=== PATIENT | female | born 1970 | race Caucasian/White ===

== ENCOUNTER 2017-05-26 22:06 | Observation (INO) | payer BC ==
[2017-05-26] MEDS ORDERED: Phenergan 25 MG INJ IV ONE (23:43)
[2017-05-26] MEDS ORDERED: Sodium Chloride 0.9% 1000 ML 1,000 ML IV STA (23:43)
[2017-05-26] MEDS ORDERED: Hydromorphone 1 mg/ml Ampule IV ONE (23:43)
--- NOTE | 2017-05-26 23:45 | ERPHSYRPT ---
- History of Present Illness Time Seen by Provider: 05/26/17 23:34 Historian: patient Exam Limitations: no limitations Patient Subjective Stated Complaint: pt has been being treated for diverticulosis and just finished a round of steroids -she was a little better then tonight she felt the pain coming back -she has had 4 diarrhea stools and vomited blue which she had eaten last night -no fever no urianary sx Triage Nursing Assessment: pt is awake and alert and able to answer questions - holding her sides at times Physician History: FOR THE PAST 3 WEEKS PT HAS HAD CONSTANT SHARP RLQ ABDOMINAL PAIN WITH INTERMITTENT NAUSEA AND VOMITING. PT WAS TREATED FOR DIVERTICULITIS AND JUST FINISHED STEROIDS YESTERDAY. TONIGHT PT VOMITED X4 WITHOUT BLOOD. PT DENIES CHEST PAIN, SHORTNESS OF AIR, FEVER; ADMITS TO ONGOING DIAPHORESIS. Allergies/Adverse Reactions: cyclobenzaprine HCl [From Flexeril] Allergy (Verified 05/26/17 23:20) tramadol Allergy (Verified 05/26/17 23:20) Hx Tetanus, Diphtheria Vaccination/Date Given: Yes Hx Influenza Vaccination/Date Given: No Hx Pneumococcal Vaccination/Date Given: No - Review of Systems Constitutional: No Fever Respiratory: No Dyspnea Cardiac: No Chest Pain Abdominal/Gastrointestinal: Abdominal Pain, Nausea, Vomiting Endocrine: Excessive Sweating All Other Systems: Reviewed and Negative - Past Medical History Pertinent Past Medical History: Yes Neurological History: No Pertinent History ENT History: No Pertinent History Cardiac History: No Pertinent History Respiratory History: No Pertinent History Endocrine Medical History: No Pertinent History Musculoskeletal History: Degenerative Disk Disease, Osteoarthritis GI Medical History: Irritable Bowel, Other History: Other Psycho-Social History: No Pertinent History Female Reproductive Disorders: Fibroids Other Medical History: kidney stones, right rotator injury - Past Surgical History Past Surgical History: Yes Neuro Surgical History: No Pertinent History Cardiac: No Pertinent History Respiratory: No Pertinent History Gastrointestinal: Cholecystectomy Genitourinary: No Pertinent History Musculoskeletal: No Pertinent History Female Surgical History: Hysterectomy Other Surgical History: gallbladder. Dx lap., childbirth x three natural, spinal fusion - Social History Smoking Status: Former smoker How long have you smoked: 10 Exposure to second hand smoke: No Drug Use: none Patient Lives Alone: No - Female History Hx Last Menstrual Period: hyst - Nursing Vital Signs Nursing Vital Signs: Initial Vital Signs Temperature 98.1 F 05/26/17 23:17 Pulse Rate 66 05/26/17 23:17 Respiratory Rate 16 05/26/17 23:17 Blood Pressure 145/88 05/26/17 23:17 O2 Sat by Pulse Oximetry 98 05/26/17 23:17 Pain Scale Pain Intensity 6 - Physical Exam General Appearance: alert Eye Exam: PERRL/EOMI Ears, Nose, Throat Exam: TMs normal, pharynx normal, moist mucous membranes Neck Exam: normal inspection Respiratory Exam: lungs clear Cardiovascular Exam: normal heart sounds Gastrointestinal/Abdomen Exam: soft, tenderness (MILD RLQ ABDOMINAL TENDERNESS) , other (B.S. MODERATELY HYPERACTIVE AND NORMOTONIC) Back Exam: normal range of motion Extremity Exam: normal inspection, No pedal edema Neurologic Exam: alert, cooperative Skin Exam: warm, dry SpO2 Interpretation: normal SpO2: 98 Oxygen Delivery: Room Air - Course Nursing assessment & vital signs reviewed: Yes - CT Exams Abdomen/Pelvis CT Interpretation: Tele-radiologist Report (THERE IS MILD WALL THICKENING OF THE RECTOSIGMOID COLON. COLON IS DECOMPRESSED IN THIS REGION BUT CLINICAL CORRELATION FOR COLITIS IS RECOMMENDED. NO OBSTRUCTION, PERFORATION OR ABSCESS. COLONIC DIVERTICULOSIS WITHOUT EVIDENCE OF DIVERTICULITIS. FAT CONTAINING UMBILICAL HERNIA.) Ordered Tests: Active Orders 24 hr Category Date Time Status Clean Catch Urine Specimen STAT Care 05/26/17 23:06 Active IV Insertion STAT Care 05/26/17 23:06 Active ABDOMEN AND PELVIS W/0 CONTRAS [CT] Stat Exams 05/26/17 23:43 Taken AMYLASE Stat Lab 05/26/17 23:40 Completed BLOOD CULTURE Stat Lab 05/27/17 01:15 Received CBC W DIFF Stat Lab 05/26/17 23:40 Completed CMP Stat Lab 05/26/17 23:40 Completed LIPASE Stat Lab 05/26/17 23:40 Completed MAG [MAGNESIUM] Stat Lab 05/26/17 23:40 Completed UA W/RFX UR CULTURE Stat Lab 05/26/17 23:40 Completed Medication Summary Generic Name Dose Route Start Last Admin Trade Name Freq PRN Reason Stop Dose Admin Metronidazole 500 mg in 100 mls @ 200 mls/hr 05/27/17 00:56 05/27/17 01:12 Flagyl 500 Mg Ivpb IV 05/27/17 01:25 200 mls/hr STAT STA Administration Levofloxacin/Dextrose 500 mg in 100 mls @ 100 mls/hr 05/27/17 00:56 Levofloxacin 500mg/100ml D5w IV 05/27/17 01:55 STAT STA Discontinued Medications Generic Name Dose Route Start Last Admin Trade Name Erika PROdilon Reason Stop Dose Admin Hydromorphone HCl 1 mg 05/26/17 23:43 05/26/17 23:49 Hydromorphone 1 Mg/Ml Ampule IV 05/26/17 23:44 1 mg STAT ONE Administration Hydromorphone HCl Confirm 05/26/17 23:46 Hydromorphone 1 Mg/Ml Ampule Administered 05/26/17 23:47 Dose 1 mg .ROUTE .STK-MED ONE Hydromorphone HCl 1 mg 05/27/17 00:56 05/27/17 01:11 Hydromorphone 1 Mg/Ml Ampule IV 05/27/17 00:57 1 mg STAT ONE Administration Hydromorphone HCl Confirm 05/27/17 01:10 Hydromorphone 1 Mg/Ml Ampule Administered 05/27/17 01:11 Dose 1 mg .ROUTE .STK-MED ONE Sodium Chloride 1,000 mls @ 999 mls/hr 05/26/17 23:43 05/26/17 23:50 Sodium Chloride 0.9% 1000 Ml IV 05/27/17 00:43 999 mls/hr .Q1H1M STA Administration Sodium Chloride Confirm 05/26/17 23:46 Sodium Chloride 0.9% 1000 Ml Administered 05/26/17 23:47 Dose 1,000 mls @ ud .ROUTE .STK-MED ONE Metronidazole Confirm 05/27/17 01:10 Flagyl 500 Mg Ivpb Administered 05/27/17 01:11 Dose 500 mg in 100 mls @ ud IV .STK-MED ONE Promethazine HCl 12.5 mg 05/26/17 23:43 05/26/17 23:50 Phenergan 25 Mg Inj IV 05/26/17 23:44 12.5 mg STAT ONE Administration Promethazine HCl Confirm 05/26/17 23:46 Phenergan 25 Mg Inj Administered 05/26/17 23:47 Dose 25 mg .ROUTE .STK-MED ONE Lab/Rad Data: Laboratory Result Diagrams 05/26/17 23:40 05/26/17 23:40 Laboratory Results 05/26/17 05/26/17 05/26/17 Range/Units 23:40 23:40 23:40 WBC (4.0-10.5) K/mm3 RBC (4.1-5.4) M/mm3 Hgb (12.0-16.0) gm/dl Hct (35-47) % MCV (78-100) fl MCH (26-32) pg MCHC (32-36) g/dl RDW (11.5-14.0) % Plt Count (150-450) K/mm3 MPV (6-9.5) fl Gran % (36.0-66.0) % Lymphocytes % (24.0-44.0) % Monocytes % (0.0-12.0) % Eosinophils % (0.00-5.0) % Basophils % (0.0-0.4) % Basophils # (0-0.4) Sodium 144 (136-145) mEq/L Potassium 3.6 (3.5-5.1) mEq/L Chloride 109 H (98-107) mEq/L Carbon Dioxide 23.8 (21-32) mEq/L Anion Gap 15.0 (5-15) MEQ/L BUN 16 (9-20) mg/dL Creatinine 0.98 (0.55-1.30) mg/dl Estimated GFR > 60 ML/MIN Glucose 96 (70-110) MG/DL Calcium 8.9 (8.5-10.1) mg/dL Magnesium 2.1 (1.8-2.4) mg/dL Total Bilirubin 0.20 (0.2-1.0) mg/dL AST 13 L (15-37) U/L ALT 19 (12-78) U/L Alkaline Phosphatase 123 H (46-116) U/L Serum Total Protein 7.0 (6.4-8.2) gm/dL Albumin 4.1 (3.4-5.0) g/dL Amylase 63 (25-115) U/L Lipase 121 (73-393) U/L Ur Collection Type CLEAN CATCH Urine Color YELLOW (YELLOW) Urine Appearance CLEAR (CLEAR) Urine pH 5.0 (5-6) Ur Specific Viola 1.025 (1.005-1.025) Urine Protein NEGATIVE (Negative) Urine Ketones NEGATIVE (NEGATIVE) Urine Blood NEGATIVE (0-5) Amarjit/ul Urine Nitrite NEGATIVE (NEGATIVE) Urine Bilirubin NEGATIVE (NEGATIVE) Urine Urobilinogen NORMAL (0-1) mg/dL Ur Leukocyte Esterase NEGATIVE (NEGATIVE) Urine Glucose NEGATIVE (NEGATIVE) mg/dL Specimen Received 05/26/17 2340 05/26/17 Range/Units 23:40 WBC 10.5 (4.0-10.5) K/mm3 RBC 4.50 (4.1-5.4) M/mm3 Hgb 13.7 (12.0-16.0) gm/dl Hct 41.5 (35-47) % MCV 92.2 (78-100) fl MCH 30.4 (26-32) pg MCHC 33.0 (32-36) g/dl RDW 12.9 (11.5-14.0) % Plt Count 217 (150-450) K/mm3 MPV 10.6 H (6-9.5) fl Gran % 57.6 (36.0-66.0) % Lymphocytes % 34.2 (24.0-44.0) % Monocytes % 6.5 (0.0-12.0) % Eosinophils % 1.2 (0.00-5.0) % Basophils % 0.5 (0.0-0.4) % Basophils # 0.05 (0-0.4) Sodium (136-145) mEq/L Potassium (3.5-5.1) mEq/L Chloride (98-107) mEq/L Carbon Dioxide (21-32) mEq/L Anion Gap (5-15) MEQ/L BUN (9-20) mg/dL Creatinine (0.55-1.30) mg/dl Estimated GFR ML/MIN Glucose (70-110) MG/DL Calcium (8.5-10.1) mg/dL Magnesium (1.8-2.4) mg/dL Total Bilirubin (0.2-1.0) mg/dL AST (15-37) U/L ALT (12-78) U/L Alkaline Phosphatase (46-116) U/L Serum Total Protein (6.4-8.2) gm/dL Albumin (3.4-5.0) g/dL Amylase (25-115) U/L Lipase (73-393) U/L Ur Collection Type Urine Color (YELLOW) Urine Appearance (CLEAR) Urine pH (5-6) Ur Specific Viola (1.005-1.025) Urine Protein (Negative) Urine Ketones (NEGATIVE) Urine Blood (0-5) Amarjit/ul Urine Nitrite (NEGATIVE) Urine Bilirubin (NEGATIVE) Urine Urobilinogen (0-1) mg/dL Ur Leukocyte Esterase (NEGATIVE) Urine Glucose (NEGATIVE) mg/dL Specimen Received - Progress Discussed with : Tomas (OBS - 0120) - Departure Time of Disposition: 01:25 Departure Disposition: Observation Clinical Impression: COLITIS, ARTHRITIS, IBS Condition: Stable Critical Care Time: No Referrals: LESVIA ROSADO MD [Primary Care Provider] -
[2017-05-26] MEDS ORDERED: Sodium Chloride 0.9% 1000 ML 1,000 ML ONE (23:46)
[2017-05-26] MEDS ORDERED: Phenergan 25 MG INJ ONE (23:46)
[2017-05-26] MEDS ORDERED: Hydromorphone 1 mg/ml Ampule ONE (23:46)
[2017-05-26 23:48] LABS: BASOPHIL % 0.5 % (0.0-0.4); Eosinophil % 1.2 % (0.00-5.0); Granulocytes % 57.6 % (36.0-66.0); Lymphocytes % 34.2 % (24.0-44.0); Mean Cell Volume 92.2 fl (78-100); Mean Corpuscular Hemoglobin 30.4 pg (26-32); Mean Platelet Volume 10.6 fl (6-9.5); Monocytes % 6.5 % (0.0-12.0); Platelet Count 217 K/mm3 (150-450); Red Cell Distribution Width 12.9 % (11.5-14.0); White Blood Count 10.5 K/mm3 (4.0-10.5)
[2017-05-26 23:54] LABS: ADD URINE CULTURE? NO (NO); Bilirubin NEGATIVE (NEGATIVE); Blood NEGATIVE Ery/ul (0-5); COMPLETE URINE MICROSCOPIC? NO; Collection Type CLEAN CATCH; Glucose NEGATIVE (NEGATIVE); Leukocyte Esterase NEGATIVE (NEGATIVE)
[2017-05-26 23:58] LABS: ALBUMIN 4.1 g/dL (3.4-5.0); ALKALINE PHOSPHATASE 123 U/L (46-116); BLOOD UREA NITROGEN 16 mg/dL (9-20); CHLORIDE 109 mEq/L (98-107); Carbon Dioxide 23.8 mEq/L (21-32); Glucose 96 MG/DL (70-110); LIPASE 121 U/L (73-393); Potassium 3.6 mEq/L (3.5-5.1); SGOT/AST 13 U/L (15-37); SGPT/ALT 19 U/L (12-78); SODIUM 144 mEq/L (136-145)
[2017-05-27] MEDS ORDERED: Levofloxacin 500MG/100ML D5W 500 MG/100 ML BAG IV STA (00:56)
[2017-05-27] MEDS ORDERED: Hydromorphone 1 mg/ml Ampule IV ONE ×2 (00:56→02:20)
[2017-05-27] MEDS ORDERED: FLAGYL 500 MG IVPB 500 MG/100 ML BAG IV STA (00:56)
[2017-05-27] MEDS ORDERED: Hydromorphone 1 mg/ml Ampule ONE ×2 (01:10→02:35)
[2017-05-27] MEDS ORDERED: FLAGYL 500 MG IVPB 500 MG/100 ML BAG IV ONE (01:10)
[2017-05-27] MEDS ORDERED: Zofran 4 MG/2 ML VIAL IV ONE (01:31)
[2017-05-27] MEDS ORDERED: Zofran 4 MG/2 ML VIAL ONE (01:33)
[2017-05-27] MEDS ORDERED: Levofloxacin 500MG/100ML D5W 500 MG/100 ML BAG IV ONE (01:56)
[2017-05-27] MEDS: Sodium Chloride 0.9% 1000 ML 1,000 ML IV SCH ×2 (03:53→14:13)
[2017-05-27] MEDS: DILAUDID 2 MG INJECTION IV PRN ×3 (05:29→21:07)
[2017-05-27 06:21] LABS: ALBUMIN 3.2 g/dL (3.4-5.0); ALKALINE PHOSPHATASE 95 U/L (46-116); ANION GAP 12.5 MEQ/L (5-15); BLOOD UREA NITROGEN 13 mg/dL (9-20); CHLORIDE 112 mEq/L (98-107); Carbon Dioxide 24.3 mEq/L (21-32); Glucose 94 MG/DL (70-110); Potassium 3.5 mEq/L (3.5-5.1); SGOT/AST 15 U/L (15-37); SGPT/ALT 14 U/L (12-78); SODIUM 145 mEq/L (136-145); Total Protein 5.7 gm/dL (6.4-8.2)
[2017-05-27] MEDS: FLAGYL 500 MG IVPB 500 MG/100 ML BAG IV SCH ×3 (06:36→21:12)
--- NOTE | 2017-05-27 09:02 | PCM.HP ---
History of Present Illness - Chief Complaint Chief Complaint: COLITIS History of Present Illness: is a 46 year old female who presented to the ER with lower abdominal pain and diarrhea. She was seen on 04/[address] that showed diverticulitis, she improved with therapy then symptoms recurred. She has been on 2 rounds of antibiotics since that time. She also has pain in the right lower quadrant and left lower quadrant. - Review of Systems Constitutional: No Fever, No Chills Respiratory: No Cough, No Short Of Breath Cardiac: No Chest Pain, No Edema, No Syncope Abdominal/Gastrointestinal: Abdominal Pain, Nausea, Vomiting, Diarrhea Genitourinary Symptoms: No Dysuria Skin: No Rash All Other Systems: Reviewed and Negative Medications & Allergies Home Medications: Home Medication List Dicyclomine HCl 10 mg PO TID PRN 05/27/17 [History Confirmed 05/27/17] Moxifloxacin HCl 400 mg PO DAILY 05/27/17 [History Confirmed 05/27/17] Allergies/Adverse Reactions: Allergies Allergy/AdvReac Type Severity Reaction Status Date / Time cyclobenzaprine HCl Allergy Verified 05/26/17 23:20 [From Flexeril] tramadol Allergy Verified 05/26/17 23:20 - Past Medical History Past Medical History: Yes Neurological History: No Pertinent History ENT History: No Pertinent History Cardiac History: No Pertinent History Respiratory History: No Pertinent History Endocrine Medical History: No Pertinent History Musculoskelatal History: Degenerative Disk Disease, Osteoarthritis GI Medical History: Irritable Bowel, Other History: Other Pyscho-Social History: No Pertinent History Reproductive Disorders: Fibroids Comment: kidney stones, right rotator injury - Female History Hx Last Menstrual Period: hyst Are you now?: No - Past Surgical History Past Surgical History: Yes Neuro Surgical History: No Pertinent History Cardiac History: No Pertinent History Respiratory Surgery: No Pertinent History GI Surgical History: Cholecystectomy Genitourinary Surgical Hx: Kidney Surgery Musculskeletal Surgical Hx: No Pertinent History Female Surgical History: Hysterectomy Other Surgical History: gallbladder. Dx lap., childbirth x three natural, spinal fusion, shoulder surgery - Social History Smoking Status: Current every day smoker How long have you smoked: 10 Exposure to second hand smoke: No Alcohol: None Drug Use: none - Physical Exam Vital Signs: Vital Signs - 24 hr Temp Pulse Resp BP Pulse Ox 05/27/17 03:04 98.6 F 81 16 133/72 96 General Appearance: no apparent distress, alert Eye Exam: PERRL/EOMI, eyes nml inspection Respiratory Exam: normal breath sounds, lungs clear, No respiratory distress Cardiovascular Exam: regular rate/rhythm, normal heart sounds, normal peripheral pulses Gastrointestinal/Abdomen Exam: soft, normal bowel sounds, tenderness (mild rlq and llq), No guarding, No rebound Results - Labs Lab/Micro Results: Lab Results-Last 24 Hours 05/27/17 Range/Units 05:15 Sodium 145 (136-145) mEq/L Potassium 3.5 (3.5-5.1) mEq/L Chloride 112 H (98-107) mEq/L Carbon Dioxide 24.3 (21-32) mEq/L Anion Gap 12.5 (5-15) MEQ/L BUN 13 (9-20) mg/dL Creatinine 0.86 (0.55-1.30) mg/dl Estimated GFR > 60 ML/MIN Glucose 94 (70-110) MG/DL Calcium 8.3 L (8.5-10.1) mg/dL Total Bilirubin 0.40 (0.2-1.0) mg/dL AST 15 (15-37) U/L ALT 14 (12-78) U/L Alkaline Phosphatase 95 (46-116) U/L Serum Total Protein 5.7 L (6.4-8.2) gm/dL Albumin 3.2 L (3.4-5.0) g/dL - Other Procedures and Tests Respiratory Therapy 05/27/17 03:34 Smoking Cessation Education ONCE Assessment/Plan (1) Colitis Current Visit: No Status: Acute Assessment & Plan: continue levaquin and flagyl, will need stool studies due to recent antibiotic usage and concern for c diff. (2) Abdominal pain Current Visit: No Status: Acute Assessment & Plan: will treat for colitis, plan to check IBD panel and ESR/CRP Code(s): R10.9 - UNSPECIFIED ABDOMINAL PAIN
[2017-05-27] MEDS: Phenergan 25 MG INJ IV PRN ×2 (09:04→17:32)
--- NOTE | 2017-05-27 09:23 | XRAY ---
Indication: Abdomen pain. Diarrhea. Diverticulosis/diverticulitis. History of IBS. Multiple contiguous axial images obtained through the abdomen and pelvis without contrast as ordered.. Comparison: April 29, 2017. Lung bases remain clear. Heart is not enlarged. Noncontrasted stomach and bowel loops again appear nonobstructed. Stable sigmoid diverticulosis today without diverticulitis. Normal appendix. No free fluid/air. Previous cholecystectomy and hysterectomy. Remaining liver, pancreas, spleen, adrenal glands, kidneys, ureters, and bladder appear unremarkable for noncontrast exam. Minimal aortoiliac calcifications without AAA. Osseous structures intact. Impression: 1. Stable sigmoid diverticulosis. No evidence for diverticulitis. 2. No new/acute intra-abdominal/pelvic abnormalities on this noncontrast exam.. Comment: Preliminary interpretation was made by [facility]. No discrepancy. CTDI 16.78
[2017-05-27] MEDS: PROTONIX 40 MG IV IV SCH (10:09)
[2017-05-27] MEDS: Levofloxacin 500MG/100ML D5W 500 MG/100 ML BAG IV SCH (10:09)
[2017-05-27] MEDS ORDERED: NON-FORMULARY ITEM (Dicyclomine Hcl [Dicyclomine Hcl] 10 MG) PO PRN (10:45)
[2017-05-27] MEDS ORDERED: BENTYL 20 MG PO PRN (10:47)
[2017-05-27] MEDS: ENOXAPARIN SODIUM SQ SCH (13:26)
[2017-05-27] MEDS ORDERED: Zofran 4 MG/2 ML VIAL IV PRN (20:56)
[2017-05-28] MEDS: DILAUDID 2 MG INJECTION IV PRN (01:19)
[2017-05-28] MEDS: Sodium Chloride 0.9% 1000 ML 1,000 ML IV SCH ×3 (02:36→21:58)
[2017-05-28 05:32] LABS: BASOPHIL % 0.3 % (0.0-0.4); Eosinophil % 1.6 % (0.00-5.0); Granulocytes % 62.7 % (36.0-66.0); Lymphocytes % 22.2 % (24.0-44.0); Mean Cell Volume 85.8 fl (78-100); Mean Corpuscular Hemoglobin 28.1 pg (26-32); Mean Platelet Volume 9.5 fl (6-9.5); Monocytes % 13.2 % (0.0-12.0); Platelet Count 254 K/mm3 (150-450); Red Blood Count 4.02 M/mm3 (4.1-5.4); Red Cell Distribution Width 14.8 % (11.5-14.0); White Blood Count 7.9 K/mm3 (4.0-10.5)
[2017-05-28 05:49] LABS: ALBUMIN 3.3 g/dL (3.4-5.0); ALKALINE PHOSPHATASE 96 U/L (46-116); ANION GAP 13.7 MEQ/L (5-15); BLOOD UREA NITROGEN 8 mg/dL (9-20); CHLORIDE 108 mEq/L (98-107); Carbon Dioxide 23.2 mEq/L (21-32); Glucose 133 MG/DL (70-110); MAGNESIUM 1.8 mg/dL (1.8-2.4); Potassium 3.6 mEq/L (3.5-5.1); SGOT/AST 13 U/L (15-37); SGPT/ALT 15 U/L (12-78); SODIUM 141 mEq/L (136-145); Total Protein 5.7 gm/dL (6.4-8.2)
[2017-05-28] MEDS: FLAGYL 500 MG IVPB 500 MG/100 ML BAG IV SCH ×3 (06:22→21:55)
--- NOTE | 2017-05-28 08:29 | PCM.NOTE ---
Date and Time: 05/28/17821 Subjective Assessment: patient is feeling a little better this am, no diarrhea since admission. abdominal pain is improving. Objective Exam General Appearance: no apparent distress Respiratory Exam: normal breath sounds, lungs clear, No respiratory distress Cardiovascular Exam: regular rate/rhythm, normal heart sounds Gastrointestinal/Abdomen Exam: soft, No tenderness, No mass Extremity Exam: normal inspection, normal range of motion OBJECTIVE DATA Vital Signs: Vital Signs - 24 hr Temp Pulse Resp BP Pulse Ox 05/28/17 07:22 98.2 F 52 L 16 119/55 95 05/28/17 04:00 98.6 F 61 18 128/70 94 L 05/28/17 00:00 99.1 F 68 20 117/67 94 L 05/27/17 20:00 98.4 F 57 L 20 129/73 95 05/27/17 16:00 98.7 F 56 L 16 129/71 97 05/27/17 11:24 98.0 F 60 16 97/60 96 Pain Assessment - Last Documented Pain Intensity 2 Pain Scale Used 0-10 Pain Scale Intake and Output: Intake & Output 05/25/17 05/26/17 05/27/17 05/28/17 11:59 11:59 11:59 11:59 Intake Total 2073 Output Total 2100 Balance -27 Weight 78.245 kg 79.18 kg Lab Results: Lab Results-Last 24 Hours 05/27/17 05/28/17 05/28/17 Range/Units 05:00 05:18 05:18 WBC 7.9 (4.0-10.5) K/mm3 RBC 4.02 L (4.1-5.4) M/mm3 Hgb 11.3 L (12.0-16.0) gm/dl Hct 34.5 L (35-47) % MCV 85.8 (78-100) fl MCH 28.1 (26-32) pg MCHC 32.8 (32-36) g/dl RDW 14.8 H (11.5-14.0) % Plt Count 254 (150-450) K/mm3 MPV 9.5 (6-9.5) fl Gran % 62.7 (36.0-66.0) % Lymphocytes % 22.2 L (24.0-44.0) % Monocytes % 13.2 H (0.0-12.0) % Eosinophils % 1.6 (0.00-5.0) % Basophils % 0.3 (0.0-0.4) % Basophils # 0.02 (0-0.4) ESR 4 (0-20) mm/hr Sodium 141 (136-145) mEq/L Potassium 3.6 (3.5-5.1) mEq/L Chloride 108 H (98-107) mEq/L Carbon Dioxide 23.2 (21-32) mEq/L Anion Gap 13.7 (5-15) MEQ/L BUN 8 L (9-20) mg/dL Creatinine 0.88 (0.55-1.30) mg/dl Estimated GFR > 60 ML/MIN Glucose 133 H (70-110) MG/DL Calcium 8.2 L (8.5-10.1) mg/dL Magnesium 1.8 (1.8-2.4) mg/dL Total Bilirubin 0.50 (0.2-1.0) mg/dL AST 13 L (15-37) U/L ALT 15 (12-78) U/L Alkaline Phosphatase 96 (46-116) U/L Serum Total Protein 5.7 L (6.4-8.2) gm/dL Albumin 3.3 L (3.4-5.0) g/dL Assessment/Plan (1) Colitis Current Visit: Yes Status: Acute Assessment & Plan: continue Levaquin and flagyl, pain improving. no fever, wbc normalized. will advance diet and try to transition to po pain meds (2) Abdominal pain Current Visit: Yes Status: Acute Code(s): R10.9 - UNSPECIFIED ABDOMINAL PAIN
[2017-05-28] MEDS: Levofloxacin 500MG/100ML D5W 500 MG/100 ML BAG IV SCH (09:52)
[2017-05-28] MEDS: PROTONIX 40 MG IV IV SCH (09:52)
[2017-05-28] MEDS: ENOXAPARIN SODIUM SQ SCH (09:52)
[2017-05-28] MEDS: NORCO 5/325 MG PO PRN ×3 (10:00→21:53)
[2017-05-29] MEDS: NORCO 5/325 MG PO PRN (04:57)
[2017-05-29] MEDS: FLAGYL 500 MG IVPB 500 MG/100 ML BAG IV SCH (05:00)
[2017-05-29 06:02] LABS: BASOPHIL % 0.8 % (0.0-0.4); Eosinophil % 2.2 % (0.00-5.0); Granulocytes % 55.8 % (36.0-66.0); Lymphocytes % 32.2 % (24.0-44.0); Mean Cell Volume 92.3 fl (78-100); Mean Platelet Volume 10.3 fl (6-9.5); Platelet Count 152 K/mm3 (150-450); Red Blood Count 4.02 M/mm3 (4.1-5.4); Red Cell Distribution Width 12.4 % (11.5-14.0)
[2017-05-29 06:15] LABS: ALBUMIN 3.4 g/dL (3.4-5.0); ALKALINE PHOSPHATASE 93 U/L (46-116); ANION GAP 10.3 MEQ/L (5-15); BLOOD UREA NITROGEN 6 mg/dL (9-20); CHLORIDE 109 mEq/L (98-107); Carbon Dioxide 28.3 mEq/L (21-32); Glucose 102 MG/DL (70-110); Potassium 3.9 mEq/L (3.5-5.1); SGOT/AST 13 U/L (15-37); SGPT/ALT 21 U/L (12-78); SODIUM 144 mEq/L (136-145)
[2017-05-29 07:26] VITALS: BP 128/72; PULSE 56; O2SAT 97
--- NOTE | 2017-05-29 07:54 | PCM.DS ---
Discharge Summary Date of Admission: 05/27/17 02:57 Admitting Physician: LESVIA ROSADO Primary Care Provider: LESVIA ROSADO Allergies Allergies cyclobenzaprine HCl [From Flexeril] Allergy (Verified 05/26/17 23:20) tramadol Allergy (Verified 05/26/17 23:20) Hospital Summary - Hospital Course Hospital Course: patient was admitted with diarrhea and low abdominal pain, was seen to have colitis on ct. has not had any diarrhea since admission. she is tolerating po intake, pain is improved. she has had no fever and her white blood cell count is normal. - Vitals & Intake/Output Vital Signs: Vital Signs Temperature 98.6 F 05/29/17 07:25 Pulse Rate 56 L 05/29/17 07:25 Respiratory Rate 18 05/29/17 07:25 Blood Pressure 128/72 05/29/17 07:25 O2 Sat by Pulse Oximetry 97 05/29/17 07:25 Intake & Output: Intake & Output 05/26/17 05/27/17 05/28/17 05/29/17 11:59 11:59 11:59 11:59 Intake Total 2553 3536 Output Total 2700 1999 Balance -147 1536 Weight 78.245 kg 79.18 kg 79.469 kg - Lab Result Diagrams: 05/29/17 05:45 05/29/17 05:45 Lab Results-Last 24 Hrs: Lab Results-Last 24 Hours 05/27/17 05/29/17 05/29/17 Range/Units 05:00 05:45 05:45 WBC 6.0 (4.0-10.5) K/mm3 RBC 4.02 L (4.1-5.4) M/mm3 Hgb 12.1 (12.0-16.0) gm/dl Hct 37.1 (35-47) % MCV 92.3 (78-100) fl MCH 30.0 (26-32) pg MCHC 32.6 (32-36) g/dl RDW 12.4 (11.5-14.0) % Plt Count 152 (150-450) K/mm3 MPV 10.3 H (6-9.5) fl Gran % 55.8 (36.0-66.0) % Lymphocytes % 32.2 (24.0-44.0) % Monocytes % 9.0 (0.0-12.0) % Eosinophils % 2.2 (0.00-5.0) % Basophils % 0.8 (0.0-0.4) % Basophils # 0.05 (0-0.4) Sodium 144 (136-145) mEq/L Potassium 3.9 (3.5-5.1) mEq/L Chloride 109 H (98-107) mEq/L Carbon Dioxide 28.3 (21-32) mEq/L Anion Gap 10.3 (5-15) MEQ/L BUN 6 L (9-20) mg/dL Creatinine 0.74 (0.55-1.30) mg/dl Estimated GFR > 60 ML/MIN Glucose 102 (70-110) MG/DL Calcium 8.5 (8.5-10.1) mg/dL Total Bilirubin 0.30 (0.2-1.0) mg/dL AST 13 L (15-37) U/L ALT 21 (12-78) U/L Alkaline Phosphatase 93 (46-116) U/L C-Reactive Prot, Quant < 0.60 (0.00-10.00) mg/L Serum Total Protein 6.0 L (6.4-8.2) gm/dL Albumin 3.4 (3.4-5.0) g/dL - Procedures and Test Procedures and Tests throughout Hospitalization: Therapy Orders & Screens 05/27/17 03:34 Smoking Cessation Education ONCE Comment: Diagnosis: colitis Smoking Status: Current every day smoker How long have you smoked: 10 Have you smoked in the past 12 months: Yes Approximately how many cigarettes per day: 2 Do you dip or chew tobacco: No If,Former Smoker,when did you quit: sep 2015 Discharge Exam General Appearance: no apparent distress, alert Skin Exam: normal color, warm, dry Respiratory Exam: normal breath sounds, lungs clear, No respiratory distress Cardiovascular Exam: regular rate/rhythm, normal heart sounds Gastrointestinal/Abdomen Exam: soft, tenderness, No mass, No guarding, No rebound Extremity Exam: normal inspection, normal range of motion Final Diagnosis/Problem List - Final Discharge Diagnosis/Problem (1) Colitis Current Visit: Yes Status: Acute Assessment & Plan: home on po levaquin and flagyl (2) Abdominal pain Current Visit: Yes Status: Acute - Discharge Disposition: Home, Self-Care Condition: Stable Prescriptions: New Metronidazole 500 mg [Flagyl 500 MG] 500 mg PO TID #21 tablet Levofloxacin [Levaquin] 500 mg PO DAILY #7 tablet Hydrocodone Bit/Acetaminophen [[place] 5/325Mg] 1 each PO Q4-6HPRN PRN #20 tablet PRN Reason: Pain Continue Dicyclomine HCl 10 mg PO TID PRN PRN Reason: stomach spasms Discontinued Moxifloxacin HCl 400 mg PO DAILY Follow up with: LESVIA ROSADO MD [Primary Care Provider] - Forms: Patient Portal Information
[2017-06-02 18:39] LABS: Anti-A4Fla2 IgG 5.4 EU/mL (< 32.4 EU/ml); Anti-CBir1 IgG < 3.1 EU/mL (< 35.4 EU/ml); IBD Spec.DNAse Sensitivity Not Detected (Not Detected); IBD Spec.pANCA Perinuclear Pat Not Detected (Not Detected)
[2017-06-02 21:56] LABS: ATG 16L 1 SNP SEE NOTES (SEE NOTES); ECM1 SNP SEE NOTES (SEE NOTES); NKX2-3 SNP SEE NOTES (SEE NOTES); STAT3 SNP SEE NOTES (SEE NOTES)
== END 2017-05-29 10:25 | disposition home or self-care (01) ==
LOC: ED 22:06 → MED SURG 05-27 02:57
PROVIDERS: ADMIT Family Medicine; ATTEND Family Medicine
DX: K52.9 Noninfective gastroenteritis and colitis, unspecified (principal); M19.90 Unspecified osteoarthritis, unspecified site; Z72.0 Tobacco use
CPT/HCPCS: 36000; 36415; 74176; 80053; 81002; 81479; 82150; 82397; 83520; 83690; 83735; 85025; 85652; 86140; 87040; 88346; 93268; 96360; 96365; 96367; 96374; 96375; 99285; G0378; J1170; J1650; J1956; J2405; J2550; A9270-GY

== ENCOUNTER 2019-08-31 01:28 | Emergency (ER) | payer BC ==
--- NOTE | 2019-08-31 01:43 | ERPHSYRPT ---
- History of Present Illness Time Seen by Provider: 08/31/19 01:43 Historian: patient, family Exam Limitations: clinical condition Physician History: 48 y/o white female with known h/o kidney stones and h/o ureterolithiasis, presents with sudden onset of right flank pain with radiation to right groin. nausea present. no abd pain. pain onset approx 3 hours ago. Timing/Duration: today, hour(s) (3) Abdominal Pain Onset Location: flank (right ) Pain Radiation: groin (right) Severity of Pain-Max: moderate Severity of Pain-Current: moderate Modifying Factors: Improves With: nothing Previous symptoms: same symptoms as today Allergies/Adverse Reactions: cyclobenzaprine HCl [From Flexeril] Allergy (Verified 08/31/19 01:45) tramadol Allergy (Verified 08/31/19 01:45) Hx Tetanus, Diphtheria Vaccination/Date Given: Yes Hx Influenza Vaccination/Date Given: No Hx Pneumococcal Vaccination/Date Given: No - Review of Systems Constitutional: No Symptoms Eyes: No Symptoms Ears, Nose, & Throat: No Symptoms Respiratory: No Symptoms Cardiac: No Symptoms Abdominal/Gastrointestinal: No Symptoms Genitourinary Symptoms: Flank Pain (right) Musculoskeletal: No Symptoms Skin: No Symptoms Neurological: No Symptoms Psychological: No Symptoms Endocrine: No Symptoms Hematologic/Lymphatic: No Symptoms Immunological/Allergic: No Symptoms All Other Systems: Reviewed and Negative - Past Medical History Pertinent Past Medical History: Yes Neurological History: No Pertinent History ENT History: No Pertinent History Cardiac History: No Pertinent History Respiratory History: No Pertinent History Endocrine Medical History: No Pertinent History Musculoskeletal History: Degenerative Disk Disease, Osteoarthritis GI Medical History: Irritable Bowel, Other History: Other Psycho-Social History: No Pertinent History Female Reproductive Disorders: Fibroids Other Medical History: kidney stones, right rotator injury - Past Surgical History Past Surgical History: Yes Neuro Surgical History: No Pertinent History Cardiac: No Pertinent History Respiratory: No Pertinent History Gastrointestinal: Cholecystectomy Genitourinary: Kidney Surgery Musculoskeletal: No Pertinent History Female Surgical History: Hysterectomy Other Surgical History: gallbladder. Dx lap., childbirth x three natural, spinal fusion, shoulder surgery - Social History Smoking Status: Current every day smoker How long have you smoked: 10 Exposure to second hand smoke: No Drug Use: none Patient Lives Alone: No - Nursing Vital Signs Nursing Vital Signs: Initial Vital Signs Pulse Rate 91 H 08/31/19 01:32 Respiratory Rate 26 H 08/31/19 01:32 Blood Pressure 215/114 08/31/19 01:32 O2 Sat by Pulse Oximetry 96 08/31/19 01:32 Pain Scale Pain Intensity 8 - Physical Exam General Appearance: moderate distress, alert, anxiety Eye Exam: PERRL/EOMI, eyes nml inspection Ears, Nose, Throat Exam: normal ENT inspection, moist mucous membranes Neck Exam: normal inspection, non-tender, supple, full range of motion Respiratory Exam: normal breath sounds, lungs clear, airway intact, No chest tenderness, No respiratory distress Cardiovascular Exam: regular rate/rhythm, normal heart sounds, normal peripheral pulses Gastrointestinal/Abdomen Exam: soft, normal bowel sounds, No tenderness Pelvic Exam: not done Rectal Exam: not done Back Exam: normal inspection, normal range of motion, CVA tenderness (right), No vertebral tenderness Extremity Exam: normal inspection, normal range of motion, pelvis stable Neurologic Exam: alert, oriented x 3, cooperative, spa therapist II-XII nml as tested Skin Exam: normal color, warm, dry Lymphatic Exam: No adenopathy SpO2 Interpretation: normal O2 Delivery: Room Air - Course Nursing assessment & vital signs reviewed: Yes Ordered Tests: Active Orders 24 hr Category Date Time Status ABDOMEN AND PELVIS W/0 CONTRAS [CT] Stat Exams 08/31/19 01:51 Taken AMYLASE Stat Lab 08/31/19 02:02 Completed CBC W DIFF Stat Lab 08/31/19 02:02 Completed CMP Stat Lab 08/31/19 02:02 Completed CULTURE,URINE Stat Lab 08/31/19 02:37 Received LIPASE Stat Lab 08/31/19 02:02 Completed Lactic Acid Stat Lab 08/31/19 01:55 Completed UA W/RFX UR CULTURE Stat Lab 08/31/19 02:37 Completed Medication Summary Discontinued Medications Generic Name Dose Route Start Last Admin Trade Name Freq PRN Reason Stop Dose Admin Hydrocodone Bitart/Acetaminophen 3 tab 08/31/19 02:51 [place] 5/325 Mg PO 08/31/19 02:52 SENT HOME W/ PATIENT ONE Hydromorphone HCl 1 mg 08/31/19 01:50 08/31/19 02:00 Hydromorphone 1 Mg/Ml Ampule IV 08/31/19 01:51 1 mg STAT ONE Administration Hydromorphone HCl Confirm 08/31/19 01:54 Hydromorphone 1 Mg/Ml Ampule Administered 08/31/19 01:55 Dose 1 mg .ROUTE .STK-MED ONE Hydromorphone HCl 0.5 mg 08/31/19 02:45 08/31/19 02:49 Hydromorphone 1 Mg/Ml Ampule IV 08/31/19 02:46 0.5 mg STAT ONE Administration Hydromorphone HCl Confirm 08/31/19 02:48 Hydromorphone 1 Mg/Ml Ampule Administered 08/31/19 02:49 Dose 1 mg .ROUTE .STK-MED ONE Sodium Chloride 1,000 mls @ 999 mls/hr 08/31/19 01:50 08/31/19 02:06 Sodium Chloride 0.9% 1000 Ml IV 08/31/19 02:50 999 mls/hr .Q1H1M STA Administration Sodium Chloride Confirm 08/31/19 01:54 Sodium Chloride 0.9% 1000 Ml Administered 08/31/19 01:55 Dose 1,000 mls @ ud .ROUTE .STK-MED ONE Ketorolac Tromethamine 30 mg 08/31/19 01:57 08/31/19 02:01 Toradol 30 Mg Injection IV 08/31/19 01:58 30 mg STAT ONE Administration Ketorolac Tromethamine Confirm 08/31/19 01:57 Toradol 30 Mg Injection Administered 08/31/19 01:58 Dose 30 mg .ROUTE .STK-MED ONE Ondansetron HCl 4 mg 08/31/19 01:50 08/31/19 01:58 Zofran 4 Mg/2 Ml Vial IV 08/31/19 01:51 4 mg STAT ONE Administration Ondansetron HCl Confirm 08/31/19 01:54 Zofran 4 Mg/2 Ml Vial Administered 08/31/19 01:55 Dose 4 mg .ROUTE .STK-MED ONE Lab/Rad Data: Laboratory Result Diagrams 08/31/19 02:02 08/31/19 02:02 Laboratory Results 08/31/19 08/31/19 08/31/19 Range/Units 02:37 02:02 02:02 WBC 8.3 (4.0-10.5) K/mm3 RBC 4.26 (4.1-5.4) M/mm3 Hgb 12.9 (12.0-16.0) gm/dl Hct 38.9 (35-47) % MCV 91.3 (78-100) fl MCH 30.3 (26-32) pg MCHC 33.2 (32-36) g/dl RDW 13.7 (11.5-14.0) % Plt Count 229 (150-450) K/mm3 MPV 10.5 H (6-9.5) fl Gran % 55.6 (36.0-66.0) % Eos # (Auto) 0.11 (0-0.5) Absolute Lymphs (auto) 2.95 (1.0-4.6) Absolute Monos (auto) 0.60 (0.0-1.3) Lymphocytes % 35.4 (24.0-44.0) % Monocytes % 7.2 (0.0-12.0) % Eosinophils % 1.3 (0.00-5.0) % Basophils % 0.5 (0.0-0.4) % Absolute Granulocytes 4.63 (1.4-6.9) Basophils # 0.04 (0-0.4) Sodium 142 (137-145) mmol/L Potassium 3.5 (3.5-5.1) mmol/L Chloride 108 H (98-107) mmol/L Carbon Dioxide 25 (22-30) mmol/L Anion Gap 12.3 (5-15) MEQ/L BUN 11 (7-17) mg/dL Creatinine 0.80 (0.52-1.04) mg/dL Estimated GFR > 60.0 ML/MIN Glucose 109 H (74-106) mg/dL Lactic Acid (0.4-2.0) Calcium 9.4 (8.4-10.2) mg/dL Total Bilirubin 0.40 (0.2-1.3) mg/dL AST 24 (14-36) U/L ALT 19 (0-35) U/L Alkaline Phosphatase 120 (38-126) U/L Serum Total Protein 7.6 (6.3-8.2) g/dL Albumin 4.5 (3.5-5.0) g/dL Amylase 91 (30-110) U/L Lipase 102 (23-300) U/L Urine Color YELLOW (YELLOW) Urine Appearance SLIGHTLY CLOUDY (CLEAR) Urine pH 6.0 (5-6) Ur Specific [place] 1.018 (1.005-1.025) Urine Protein 30 (Negative) Urine Ketones NEGATIVE (NEGATIVE) Urine Blood MODERATE (0-5) Amarjit/ul Urine Nitrite NEGATIVE (NEGATIVE) Urine Bilirubin NEGATIVE (NEGATIVE) Urine Urobilinogen NEGATIVE (0-1) mg/dL Ur Leukocyte Esterase TRACE (NEGATIVE) Urine WBC (Auto) 0-2 (0-5) /HPF Urine RBC (Auto) 51-100 (0-2) /HPF U Epithel Cells (Auto) NONE (FEW) /HPF Urine Bacteria (Auto) NONE (NEGATIVE) /HPF Unidentified Crystals 2-5 (NEGATIVE) /HPF Urine Mucus (Auto) SLIGHT (NEGATIVE) /HPF Urine Culture Reflexed YES (NO) Urine Glucose NEGATIVE (NEGATIVE) mg/dL 08/31/19 Range/Units 01:55 WBC (4.0-10.5) K/mm3 RBC (4.1-5.4) M/mm3 Hgb (12.0-16.0) gm/dl Hct (35-47) % MCV (78-100) fl MCH (26-32) pg MCHC (32-36) g/dl RDW (11.5-14.0) % Plt Count (150-450) K/mm3 MPV (6-9.5) fl Gran % (36.0-66.0) % Eos # (Auto) (0-0.5) Absolute Lymphs (auto) (1.0-4.6) Absolute Monos (auto) (0.0-1.3) Lymphocytes % (24.0-44.0) % Monocytes % (0.0-12.0) % Eosinophils % (0.00-5.0) % Basophils % (0.0-0.4) % Absolute Granulocytes (1.4-6.9) Basophils # (0-0.4) Sodium (137-145) mmol/L Potassium (3.5-5.1) mmol/L Chloride (98-107) mmol/L Carbon Dioxide (22-30) mmol/L Anion Gap (5-15) MEQ/L BUN (7-17) mg/dL Creatinine (0.52-1.04) mg/dL Estimated GFR ML/MIN Glucose (74-106) mg/dL Lactic Acid 1.5 (0.4-2.0) Calcium (8.4-10.2) mg/dL Total Bilirubin (0.2-1.3) mg/dL AST (14-36) U/L ALT (0-35) U/L Alkaline Phosphatase (38-126) U/L Serum Total Protein (6.3-8.2) g/dL Albumin (3.5-5.0) g/dL Amylase (30-110) U/L Lipase (23-300) U/L Urine Color (YELLOW) Urine Appearance (CLEAR) Urine pH (5-6) Ur Specific [place] (1.005-1.025) Urine Protein (Negative) Urine Ketones (NEGATIVE) Urine Blood (0-5) Amarjit/ul Urine Nitrite (NEGATIVE) Urine Bilirubin (NEGATIVE) Urine Urobilinogen (0-1) mg/dL Ur Leukocyte Esterase (NEGATIVE) Urine WBC (Auto) (0-5) /HPF Urine RBC (Auto) (0-2) /HPF U Epithel Cells (Auto) (FEW) /HPF Urine Bacteria (Auto) (NEGATIVE) /HPF Unidentified Crystals (NEGATIVE) /HPF Urine Mucus (Auto) (NEGATIVE) /HPF Urine Culture Reflexed (NO) Urine Glucose (NEGATIVE) mg/dL - Progress Progress: improved, pain not gone completely, re-examined Progress Note: 08/31/19 02:47 ct abd/pelvis-right hydronephrosis secondary to 2mm ureteral stone at uvj Counseled pt/family regarding: lab results, diagnosis, need for follow-up, rad results - Departure Departure Disposition: Home Clinical Impression: Right ureteral calculus Condition: Stable Critical Care Time: No Referrals: LESVIA ROSADO MD [Primary Care Provider] - Additional Instructions: drink plenty of fluids. add ibuprofen 600mg orally 3 times daily with food. follow up with urologist for further management Prescriptions: Hydrocodone/APAP 5/325 [[place] 5/325 mg] 1 each PO Q8H PRN PRN #9 tablet MDD 3 PRN Reason: Pain
[2019-08-31] MEDS ORDERED: Sodium Chloride 0.9% 1000 ML 1,000 ML IV STA (01:50)
[2019-08-31] MEDS ORDERED: Zofran 4 MG/2 ML VIAL IV ONE (01:50)
[2019-08-31] MEDS ORDERED: Hydromorphone 1 mg/ml Ampule IV ONE ×2 (01:50→02:45)
[2019-08-31] MEDS ORDERED: Zofran 4 MG/2 ML VIAL ONE (01:54)
[2019-08-31] MEDS ORDERED: Hydromorphone 1 mg/ml Ampule ONE ×2 (01:54→02:48)
[2019-08-31] MEDS ORDERED: Sodium Chloride 0.9% 1000 ML 1,000 ML ONE (01:54)
[2019-08-31] MEDS ORDERED: TORAdol 30 mg Injection ONE (01:57)
[2019-08-31] MEDS ORDERED: TORAdol 30 mg Injection IV ONE (01:57)
[2019-08-31 02:06] LABS: Absolute Neutrophil Ct (ANC) 4.63 (1.4-6.9); BASOPHIL % 0.5 % (0.0-0.4); Basophil (Absolute #) 0.04 (0-0.4); Eosinophil % 1.3 % (0.00-5.0); Eosinophil (Absolute #) 0.11 (0-0.5); Hematocrit 38.9 % (35-47); Hemoglobin 12.9 gm/dl (12.0-16.0); Lymphocyte (Absolute #) 2.95 (1.0-4.6); Lymphocytes % 35.4 % (24.0-44.0); Mean Cell Volume 91.3 fl (78-100); Mean Corpuscular Hemoglobin 30.3 pg (26-32); Mean Corpuscular Hgb Concent. 33.2 g/dl (32-36); Mean Platelet Volume 10.5 fl (6-9.5); Monocytes % 7.2 % (0.0-12.0); Neutrophil % 55.6 % (36.0-66.0); Platelet Count 229 K/mm3 (150-450); Red Blood Count 4.26 M/mm3 (4.1-5.4); Red Cell Distribution Width 13.7 % (11.5-14.0); White Blood Count 8.3 K/mm3 (4.0-10.5)
[2019-08-31 02:18] LABS: ALBUMIN 4.5 g/dL (3.5-5.0); ALKALINE PHOSPHATASE 120 U/L (38-126); AMYLASE 91 U/L (30-110); ANION GAP 12.3 MEQ/L (5-15); BLOOD UREA NITROGEN 11 mg/dL (7-17); CHLORIDE 108 mmol/L (98-107); Calcium 9.4 mg/dL (8.4-10.2); Carbon Dioxide 25 mmol/L (22-30); Glucose 109 mg/dL (74-106); LIPASE 102 U/L (23-300); Potassium 3.5 mmol/L (3.5-5.1); SGOT/AST 24 U/L (14-36); SGPT/ALT 19 U/L (0-35); SODIUM 142 mmol/L (137-145); Total Protein 7.6 g/dL (6.3-8.2)
[2019-08-31 02:48] LABS: Appearance SLIGHTLY CLOUDY (CLEAR); Bilirubin NEGATIVE (NEGATIVE); Blood MODERATE Ery/ul (0-5); Glucose NEGATIVE (NEGATIVE); Ketones NEGATIVE (NEGATIVE); Leukocyte Esterase TRACE (NEGATIVE); Mucus SLIGHT /HPF (NEGATIVE); Nitrite NEGATIVE (NEGATIVE); Protein,Urine Dip 30 (Negative); RBC 51-100 /HPF (0-2); Specific Gravity 1.018 (1.005-1.025); Urobilinogen NEGATIVE mg/dL (0-1); WBC 0-2 /HPF (0-5)
[2019-08-31] MEDS ORDERED: NORCO 5/325 MG PO ONE (02:51)
[2019-08-31] MEDS ORDERED: NORCO 5/325 MG ONE (02:56)
[2019-08-31 03:06] VITALS: BP 173/95; PULSE 62; O2SAT 94
--- NOTE | 2019-08-31 07:51 | XRAY ---
Indication: Right flank pain. History IBS and renal stones. Multiple contiguous axial images obtained through the abdomen and pelvis without contrast as ordered. Comparison: May 27, 2017. Lung bases are clear. Heart is not enlarged. Noncontrasted stomach and bowel loops appear nonobstructed. Normal appendix. No free fluid/air. Stable sigmoid diverticulosis without diverticulitis. Again previous cholecystectomy and hysterectomy. New 3 mm right UVJ calculus. Proximal right ureter is distended up to 10 mm and there is moderate hydronephrosis consistent with obstructive uropathy. Additional punctate calculus in each kidney. Remaining liver, pancreas, spleen, adrenal glands, left kidney, left ureter, and bladder appear unremarkable for noncontrast exam. Stable minimal aortic calcifications without AAA. Osseous structures intact. Impression: 1. New 3 mm distal right UVJ calculus producing obstructive uropathy. Additional bilateral renal micro-calculus. 2. Stable sigmoid diverticulosis. 3. Remaining CT abdomen/pelvis without contrast exam is negative. Comment: Preliminary interpretation was made by [facility]. No discrepancy. CTDI 10.50
== END 2019-08-31 03:32 | disposition home or self-care (01) ==
LOC: ED 01:28
DX: N20.1 Calculus of ureter (principal); N13.30 Unspecified hydronephrosis
CPT/HCPCS: 36415; 74176; 80053; 81001; 82150; 83605; 83690; 85025; 87086; 96360; 96374; 96375; 96376; 99284; J1170; J1885; J2405; A9270-GY